=== PATIENT | female | born 1975 | race American Indian/Alaskan Native ===

== ENCOUNTER 2017-06-28 09:24 | Emergency (ER) | payer BC, OTHER ==
[2017-06-28 10:15] LABS: Basophils % (Auto) 0.2 % (0.0-1.8); Hematocrit 39.5 % (30.3-42.9); Hemoglobin 13.4 gm/dl (10.1-14.3); Lymphocytes # (Auto) 0.9 K/mm3 (1.2-5.4); Lymphocytes % (Auto) 9.3 % (13.4-35.0); Mean Corpuscular HGB Conc 34 % (30-34); Mean Corpuscular Hemoglobin 30 pg (28-32); Mean Corpuscular Volume 89 fl (79-97); Monocytes # (Auto) 0.5 K/mm3 (0.0-0.8); Platelet Count 271 K/mm3 (140-440); Red Blood Count 4.44 M/mm3 (3.65-5.03); Red Cell Distribution Width 13.5 % (13.2-15.2)
[2017-06-28 10:32] LABS: Alanine Aminotransferase 18 units/L (7-56); Albumin 4.3 g/dL (3.9-5); BUN/Creatinine Ratio 15; Blood Urea Nitrogen 9 mg/dL (7-17); Calcium 9.5 mg/dL (8.4-10.2); Hemolysis Index 5
--- NOTE | 2017-06-28 12:09 | Emergency Department Report ---
Chief Complaint: Abdominal Pain Stated Complaint: ABD PAIN/VOMITING - HPI History of Present Illness: Healthy 42-year-old female presents with left flank pain. - Exam Vital Signs: Vital Signs 06/28/17 09:50 Temperature 97.8 F Pulse Rate 85 Respiratory 16 Rate Blood Pressure 151/101 O2 Sat by Pulse 96 Oximetry MSE screening note: Focused history and physical exam performed. Due to findings the following was ordered: ED Medical Decision Making - Lab Data Result diagrams: 06/28/17 09:55 06/28/17 09:55 ED Disposition for MSE Condition: Stable Instructions: Abdominal Pain (ED) Referrals: PRIMARY CARE, [Primary Care Provider] - 3-5 Days
[2017-06-28] MEDS ORDERED: PERCOCET 5/325 PO ONE (12:10)
[2017-06-28] MEDS ORDERED: ZOFRAN ODT PO ONE (12:10)
[2017-06-28] MEDS ORDERED: ZOFRAN ONE (12:17)
[2017-06-28] MEDS ORDERED: NACL 0.9% 1000 ML 1,000 ML ONE (12:17)
[2017-06-28] MEDS ORDERED: ZOFRAN IV ONE (12:21)
[2017-06-28] MEDS ORDERED: TORADOL IV ONE (12:21)
[2017-06-28] MEDS ORDERED: NACL 0.9% 1000 ML 1,000 ML IV ONE (12:21)
[2017-06-28 12:37] LABS: Bacteria,Urine 1+ /HPF (Negative); Bilirubin,Urine NEG (Negative); Blood,Urine SM (Negative); Color,Urine Yellow (Yellow); Mucus,Urine FEW /HPF; Nitrite,Urine NEG (Negative); Urobilinogen,Urine < 2.0 mg/dL (<2.0)
--- NOTE | 2017-06-28 12:39 | Emergency Department Report ---
ED Abdominal Pain HPI - General Chief Complaint: Abdominal Pain Stated Complaint: ABD PAIN/VOMITING Time Seen by Provider: 06/28/17 12:19 Source: patient Mode of arrival: Ambulatory Limitations: No Limitations - History of Present Illness Initial Comments: Patient reports left flank pain since yesterday morning. Positive nausea and vomiting. She states she hasn't been able to keep anything down. She said this happens every 2 months but usually goes away. Patient states that her last bowel movement was yesterday and was normal. Denies any vaginal bleeding, discharge or painful urination. Denies any urinary frequency or urgency. Denies any fever or chills. Blood pressure is 151/101 and she denies any history of high blood pressure she says she has a past surgical history of hysterectomy. Denies any chest pain or abdominal pain. Denies any blood in her vomit or stool. Pain is 10 out of 10 and aching in and throbbing. Took [id number] pain medication without any relief. MD Complaint: flank pain Onset/Timin -: days(s) Location: L flank Radiation: none Migration to: no migration Severity: severe Severity scale (0 -10): 10 Quality: aching (throbbing) Consistency: constant Improves With: nothing Worsens With: nothing Context: other (unknown) Associated Symptoms: nausea, vomiting. denies: diarrhea, fever, chills, constipation, dysuria, hematemesis, hematochezia, melena, hematuria, anorexia, syncope Treatments Prior to Arrival: other ([id number] pain medicine) - Related Data Home Medications Medication Instructions Recorded Confirmed Last Taken Ascorbic Acid [Vitamin C] 500 mg PO QDAY 12/30/14 01/06/15 01/04/15 Ferrous Sulfate [Feosol 325 MG tab] 325 mg PO QDAY 12/30/14 01/06/15 01/04/15 Previous Rx's Medication Instructions Recorded Last Taken Type Promethazine [Phenergan TAB] 25 mg PO Q8HR PRN #12 tab 06/28/17 Unknown Rx traMADol [Ultram] 50 mg PO Q6HR PRN #12 tablet 06/28/17 Unknown Rx Allergies Allergy/AdvReac Type Severity Reaction Status Date / Time aspirin Allergy nose bleeds Verified 12/30/14 12:24 ED Review of Systems ROS: Stated complaint: ABD PAIN/VOMITING Other details as noted in HPI Comment: All other systems reviewed and negative Constitutional: no symptoms reported Eyes: denies: eye discharge ENT: denies: ear pain, throat pain, dental pain, hearing loss, congestion Respiratory: no symptoms reported Cardiovascular: denies: chest pain, palpitations, dyspnea on exertion, edema, syncope, paroxysmal nocturnal dyspnea Gastrointestinal: nausea, vomiting, other (left flank pain). denies: abdominal pain, diarrhea, constipation, hematemesis, melena, hematochezia Genitourinary: denies: urgency, dysuria, frequency, hematuria, discharge, abnormal menses, dyspareunia Musculoskeletal: back pain Skin: denies: rash Neurological: denies: headache ED Past Medical Hx - Past Medical History Previous Medical History?: No Hx Hypertension: No Hx Heart Attack/AMI: No Hx Congestive Heart Failure: No Hx Diabetes: No Hx Liver Disease: No Hx Renal Disease: No Hx Seizures: No Hx Asthma: No Hx COPD: No - Surgical History Past Surgical History?: Yes Additional Surgical History: hysterectomy - Family History Family history: no significant - Social History Smoking Status: Never Smoker Substance Use Type: None - Medications Home Medications: Home Medications Medication Instructions Recorded Confirmed Last Taken Type Ascorbic Acid [Vitamin C] 500 mg PO QDAY 12/30/14 01/06/15 01/04/15 History Ferrous Sulfate [Feosol 325 MG tab] 325 mg PO QDAY 12/30/14 01/06/15 01/04/15 History Promethazine [Phenergan TAB] 25 mg PO Q8HR PRN #12 tab 06/28/17 Unknown Rx traMADol [Ultram] 50 mg PO Q6HR PRN #12 tablet 06/28/17 Unknown Rx ED Physical Exam - General Limitations: No Limitations General appearance: alert, in no apparent distress - Head Head exam: Present: atraumatic, normocephalic, normal inspection - Eye Eye exam: Present: normal appearance, PERRL, EOMI Pupils: Present: normal accommodation - ENT ENT exam: Present: normal orophraynx, mucous membranes dry. Absent: normal exam - Neck Neck exam: Present: normal inspection, full ROM, other (no C-spine tenderness). Absent: tenderness, meningismus, lymphadenopathy, thyromegaly - Respiratory Respiratory exam: Present: normal lung sounds bilaterally. Absent: respiratory distress, chest wall tenderness - Cardiovascular Cardiovascular Exam: Present: regular rate, normal rhythm, normal heart sounds. Absent: systolic murmur, diastolic murmur - GI/Abdominal GI/Abdominal exam: Present: soft, normal bowel sounds. Absent: distended, tenderness, guarding, rebound, rigid, organomegaly, mass, bruit, pulsatile mass , hernia - Extremities Exam Extremities exam: Present: normal inspection, full ROM, normal capillary refill , other (no NO clubbing, cyanosis or edema. +2 pulses all extremities and no neurovascular compromise). Absent: tenderness, pedal edema, joint swelling, calf tenderness - Back Exam Back exam: Present: normal inspection, full ROM, other (ambulates without any difficulties). Absent: tenderness, CVA tenderness (R), CVA tenderness (L), muscle spasm, paraspinal tenderness, vertebral tenderness, rash noted - Neurological Exam Neurological exam: Present: alert, oriented X3, normal gait, reflexes normal. Absent: motor sensory deficit - Psychiatric Psychiatric exam: Present: normal affect, normal mood - Skin Skin exam: Present: warm, dry, intact, normal color. Absent: rash ED Course Vital Signs 06/28/17 06/28/17 06/28/17 09:50 11:53 15:28 Temperature 97.8 F 98.6 F Pulse Rate 85 85 Respiratory 16 16 14 Rate Blood Pressure 151/101 Blood Pressure 139/106 [Left] O2 Sat by Pulse 96 100 98 Oximetry - Reevaluation(s) Reevaluation #1: 06/28/17 12:40 Patient given Toradol 30 mg IV, Zofran 4 mg IV, awaiting lab results. IV fluid normal saline infusing. Reevaluation #2: 06/28/17 14:00 Patient is stable, pain is better. No nausea. Tolerating oral liquids and received 1 L for IV fluid. Blood pressure remained elevated at 156/101 with no symptoms. ED Medical Decision Making - Lab Data Result diagrams: 06/28/17 09:55 06/28/17 09:55 Labs 06/28/17 06/28/17 06/28/17 09:55 09:55 11:40 WBC 10.2 RBC 4.44 Hgb 13.4 Hct 39.5 MCV 89 MCH 30 MCHC 34 RDW 13.5 Plt Count 271 Lymph % (Auto) 9.3 L [place] % (Auto) 5.0 Eos % (Auto) 0.0 Baso % (Auto) 0.2 Lymph # 0.9 L [place] # 0.5 Eos # 0.0 Baso # 0.0 Seg Neutrophils % 85.5 H Seg Neutrophils # 8.7 H Sodium 138 Potassium 3.7 Chloride 94.7 L Carbon Dioxide 28 Anion Gap 19 BUN 9 Creatinine 0.6 L Estimated GFR > 60 BUN/Creatinine Ratio 15 Glucose 117 H Calcium 9.5 Total Bilirubin 1.00 AST 19 ALT 18 Alkaline Phosphatase 73 Total Protein 7.7 Albumin 4.3 Albumin/Globulin Ratio 1.3 Urine Color Yellow Urine Turbidity Clear Urine pH 6.0 Ur Specific [place] 1.018 Urine Protein 100 mg/dl Urine Glucose (UA) 50 Urine Ketones Neg Urine Blood Sm Urine Nitrite Neg Urine Bilirubin Neg Urine Urobilinogen < 2.0 Ur Leukocyte Esterase Neg Urine WBC (Auto) 2.0 Urine RBC (Auto) 3.0 U Epithel Cells (Auto) < 1.0 Urine Bacteria (Auto) 1+ Urine Mucus Few - Radiology Data Radiology results: report reviewed CT scan of the abdomen and pelvis shows unremarkable CT scan. - Medical Decision Making ED course: She presents to emergency room with complaints of left flank pain since yesterday morning with nausea and vomiting without fever. CBC and BMP stable, urinalysis stable. He showed blood pressure prior to discharge 156/101 and asymptomatic. She says she has no history of high blood pressure. I discussed with her that she is to follow up with her primary care and prior to appointment to keep a log of her blood pressure daily and bring to her appointment with her to evaluate blood pressure CT scan reveals unremarkable CT scan. Patient received normal saline 1 L, Zofran 4 mg IV and Toradol 30 mg IV. She is also given oxycodone 1 tablet by mouth emergency room. Pain has been relieved. She is no longer nauseous and able to tolerate oral fluids without any nausea or vomiting. 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 Patient voiced understanding and discharged home with prescription for Bentyl and Zofran. Critical care attestation.: If time is entered above; I have spent that time in minutes in the direct care of this critically ill patient, excluding procedure time. ED Disposition Clinical Impression: Left flank pain, Blood pressure elevated without history of HTN Nausea & vomiting Qualifiers: Vomiting type: unspecified Vomiting Intractability: non-intractable Qualified Code(s): R11.2 - Nausea with vomiting, unspecified Disposition: DC-01 TO HOME OR SELFCARE Is pt being admited?: No Does the pt Need Aspirin: No Condition: Stable Instructions: Acute Nausea and Vomiting (ED), DASH Eating Plan (ED), Low Sodium Diet (ED), Hypertension (ED), Flank Pain (ED) Additional Instructions: Please increase her fluid intake to 2-3 L of water daily. Take nausea medicine prescribed but please not drive or operative machinery on taking this medication. Follow-up with your primary care and forest management professor for further evaluation for recurrent flank pain Pain and nausea and vomiting with normal CT scan Take Ultram for pain as prescribed and please not drive or operate heavy machinery while taking this medicine Prescriptions: Promethazine [Phenergan TAB] 25 mg PO Q8HR PRN #12 tab PRN Reason: Nausea traMADol [Ultram] 50 mg PO Q6HR PRN #12 tablet PRN Reason: Pain Referrals: PRIMARY CARE, [Primary Care Provider] - 06/30/17 [facility] [Provider Group] - 3-5 Days Forms: Accompanied Note, Work/School Release Form(ED)
--- NOTE | 2017-06-28 14:19 | Cat Scan Report ---
CT ABDOMEN PELVIS WITHOUT CONTRAST: HISTORY: Flank pain. COMPARISON: none. TECHNIQUE: Helical CT in 1.25mm intervals without IV contrast. Sagittal and coronal reconstructions. FINDINGS: Lung bases: Normal. Liver: Normal. Biliary system: Normal. Pancreas: Normal. Spleen: Normal. Kidneys/ureters/bladder: Normal. Adrenal glands: Normal. Aorta: Normal. Intestines: Normal. Appendix: Normal. Pelvic viscera: Normal. Ascites: None. Adenopathy: None. Musculoskeletal: Normal. IMPRESSION: Unremarkable CT scan of the abdomen and pelvis without contrast.
[2017-06-28 15:29] VITALS: BP 139/106
== END 2017-06-28 15:32 | disposition home or self-care (01) ==
LOC: ED 09:24
DX: R11.2 Nausea with vomiting, unspecified (principal); R10.9 Unspecified abdominal pain; Z88.6 Allergy status to analgesic agent
CPT/HCPCS: 36415; 74176; 80053; 81001; 85025; 87086; 96361; 96374; 96375; 99284; J1885; J2405; J7030